=== PATIENT | female | born 1990 | race Caucasian/White ===

== ENCOUNTER 2018-03-03 11:15 | Inpatient (IN) | payer BC, SELFPAY ==
[2018-03-03 11:24] VITALS: BMI 23.8
[2018-03-03 11:42] LABS: Hematocrit 37.5 % (37-47); Hemoglobin 13.3 g/dl (12.0-15.0); Mean Corp Hgb Conc 35.5 g/gl (32-36); Mean Corpuscular Hgb 33.1 pg (27.0-32.0); Mean Corpuscular Volume 93.3 fL (81-99); Mean Platelet Vol. 11.3 fl (6.2-12.0); Platelet Count 256 K/mm3 (150-450); RBC Distribution Width CV 13.5 % (11.6-14.6); RBC Distribution Width SD 45.2 fl (35.1-43.9); Red Blood Count 4.02 M/mm3 (4.2-5.4); Scan Indicated on CBC? Y/N NO; White Blood Count 23.1 K/mm3 (4.4-11.0)
[2018-03-03] MEDS: Oxytocin 30 units/NS 500 ml 30 UNITS/500 ML IV.SOLN 334 UNITS IV (11:45)
--- NOTE | 2018-03-03 11:52 | PCM.HP.OB ---
History Date of Admission: 03/03/18 Final MALAIKA: 03/28/18 Final MALAIKA Source: LMP Gestational age: 36 Weeks and 3 Days History of this : @ 36.3 wks in active labor, denies any complications with the . pt is dated by LMP c/w first trimester ultrasound. Allergies No Known Allergies Allergy (Verified 01/14/17 00:46) Current Medications Acetaminophen (Tylenol) 325 - 650 mg PO Q4H PRN PRN PRN Reason: PAIN OR FEVER >100.4F Al Hydroxide/Mg Hydroxide (Mylanta Ii) 15 - 30 ml PO Q4H PRN PRN PRN Reason: INDIGESTION Citric Acid/Sodium Citrate (Bicitra) 30 ml PO UD PRN Lactated Ringer's () 1,000 mls @ 50 mls/hr IV .Q20H DARCIE Nalbuphine HCl (Nubain) 5 - 10 mg IV Q3H PRN PRN PRN Reason: PAIN (4-10/10) Ondansetron HCl (Zofran) 4 mg IV Q8H PRN PRN PRN Reason: NAUSEA Promethazine HCl (Phenergan) 6.25 - 12.5 mg IV Q4H PRN PRN; Protocol PRN Reason: IF NAUSEA PERSISTS Sodium Chloride () 5 - 15 ml IV UD DARCIE Smoking Status: Heavy Smoker (>10/day) Alcohol: None Substance Use Type: Marijuana Number of Fetus(es): 1 Review of Systems Constitutional: Denies: Anorexia Cardiovascular: Denies: Chest Pain Respiratory: Denies: Cough Physical Exam General: Alert, Oriented x3 Abdomen: Soft, Gravid Estimated gestational size: Appropriate for gestational size Presentation: Cephalic Cervix Dilation (cm): 10 Station: 1 Effacement (%): 100 Assessment/Plan 27yo @ 36.3 wks Fully dilated with bulging membranes on admission 1) admit to L&D 2) Nitrous for pain relief 3) Monitor FHR/TOCO 4) anticipate 5) AROM- CLEAR 6) GBS neg, AB +, HIV neg, Rub imm, Syphilis neg, HEP B neg
--- NOTE | 2018-03-03 11:55 | PCM.OB.VAG ---
Vaginal Delivery Maternal Presentation: Active Labor Amniotic Membrane Rupture Type: Artificial Amniotic Fluid Description: Clear Final MALAIKA: 03/28/18 Gestational age: 36 Weeks and 3 Days Date of Procedure: 03/03/18 Pre-Operative Diagnosis: spontnaeous labor Post-Operative Diagnosis: SAME, LIVE MALE Surgery/ Procedure Performed: Spontaneous Vaginal Delivery Type of Anesthesia: - - NITROUS Description of Procedure: OF LIVE MALE INFANT BORN WITHOUT COMPLICATION. AROM PERFORMED- CLEAR FLUID AND WITH A FEW PUSHES BABY WAS DELIVERED WITH GOOD MATERNAL EFFORT. DELAYED CORD CLAMPING PERFORMED. Presentation: Vertex Placental Delivery Description: Spontaneous Placenta Disposition: [facility] Cord Vessel Description: 3 Vessels Cord Entanglement: None Estimated Blood Loss: 150 Infant A gender: Male (1 minute): 9 (5 minute): 10 Episiotomy Description: None Laceration: None Medications given after delivery: IV Pitocin Complications: None
--- NOTE | 2018-03-03 12:01 | DCINST_ITS ---
Discharge Diet: No Restrictions Discharge Activity: Return to Normal Activity, May not drive while taking narcotic pain medications., May Shower May resume sexual activity in: 4-6 weeks Additional Activity Instructions:: Nothing in the vagina for 4-6 weeks. You may return to work/school in 6 weeks. Call your doctor if your incision/area has: Continuous Slow Oozing, Sudden Increased Bleeding, Increased Pain/ Swelling, Increased Redness, Foul Smelling Discharge Additional Instructions: If you experience any of the following, contact your healthcare provider. * Bleeding that soaks a pad every hour for 2 hours * Fever 100.4 or higher * Unrelieved incision or abdominal pain * Swelling, redness, discharge or bleeding from your incision or episiotomy site * Your incision begins to separate * Problems urinating (including inability to urinate or burning while urinating) . * Visual changes * Severe headache * Flu-like symptoms * Pain or redness in one of both of your breasts * Pain, warmth, tenderness or swelling in your legs, especially the calf area * Frequent nausea and vomiting * Symptoms of depression or anxiety If you experience any of the following, call 911 or go to the nearest Emergency Room. * Chest pain * Problems breathing * Seizure activity * Partial or complete paralysis of a body part, slurred speech, weakness or drooping of the face, or a sudden inability to walk or hold your balance Allergies/Adverse Reactions: Allergies No Known Allergies Allergy (Verified 01/14/17 00:46) Medications to take at Discharge Vits [Prenatabs FA ] 1 tablet PO DAILY 01/13/17 Acetaminophen [Tylenol] 500 - 1,000 mg PO Q6H PRN PRN 03/03/18 Ibuprofen [Motrin] 800 mg PO Q8H PRN PRN #30 tab 03/03/18 The following prescriptions were given: Ibuprofen [Motrin] 800 mg PO Q8H PRN PRN #30 tab PRN Reason: Pain When: Call to make an appointment with your doctor in 6 weeks. If you had elevated Blood Pressure or 4th degree laceration you will need to be seen in 2 weeks.
[2018-03-03] MEDS: Oxytocin 30 units/NS 500 ml 30 UNITS/500 ML IV.SOLN 167 UNITS IV (12:35)
[2018-03-03] MEDS: Ibuprofen 600 MG Tablet PO (12:43)
[2018-03-03] MEDS: Methylergonovine 0.2 MG/ML Ampul IM (13:08)
[2018-03-03] MEDS: 0.9% Saline Lock 10 ML Syringe IV (13:25)
[2018-03-03] MEDS: Lactated Ringers 1,000 ML 50 ML IV (13:30)
[2018-03-03 15:06] LABS: Amphetamine Urine VISTA NEGATIVE (<1000 ng/mL); Barbiturate Urine VISTA NEGATIVE (< 200 ng/mL); Benzodiazepine Urine VISTA NEGATIVE (< 200 ng/mL); Cocaine Urine VISTA NEGATIVE (< 300 ng/mL); Ecstacy Urine VISTA NEGATIVE (< 500 ng/mL); Methadone Urine VISTA NEGATIVE (< 300 ng/mL); PCP Urine VISTA NEGATIVE (< 25 ng/mL); THC Urine VISTA NEGATIVE (< 50 ng/mL); Vista UDS pH Range 6
[2018-03-03 16:00] VITALS: BP 106/66; PULSE 81; RESP 18; TEMP 36.4
[2018-03-03 20:00] VITALS: BP 102/54; PULSE 80; RESP 15; TEMP 36.8
[2018-03-04] VITALS: BP 97/49; PULSE 89; RESP 18; TEMP 37.1
[2018-03-04] MEDS: Ibuprofen 600 MG Tablet PO (02:37)
[2018-03-04 04:00] VITALS: BP 97/49; PULSE 89; RESP 17; TEMP 37.1
[2018-03-04 08:30] VITALS: BP 92/50; PULSE 72; RESP 16; TEMP 36.3
--- NOTE | 2018-03-04 08:47 | PCM.PN.OB ---
Subjective: No complaints - Physical Exam General: Alert, Oriented x3 Abdomen: Soft, Non Tender - ff mid & below umb Extremities: No Calf Tenderness Vital Signs Temp Pulse Resp BP 98.7 F 89 17 97/49 L 03/04/18 04:00 03/04/18 04:00 03/04/18 04:00 03/04/18 04:00 Oxygen Delivery Method Room Air Weight: 138 lb 14.259 oz Body Mass Index (BMI) 23.8 Intake and Output for Last 24 Hours 03/02/18 03/03/18 03/04/18 23:59 23:59 23:59 Intake Total 334 / 334 Output Total 400 / 400 Balance -66 / -66 Laboratory Tests Past 24 Hrs 03/03/18 03/03/18 03/03/18 11:25 11:25 14:10 WBC 23.1 H RBC 4.02 L Hgb 13.3 Hct 37.5 MCV 93.3 MCH 33.1 H MCHC 35.5 RDW 13.5 RDW Differential 45.2 H Plt Count 256 MPV 11.3 Urine Opiates Screen NEGATIVE Urine Methadone Screen NEGATIVE Ur Barbiturates Screen NEGATIVE Ur Phencyclidine Scrn NEGATIVE Ur Amphetamines Screen NEGATIVE U Methamphetamin-MDMA NEGATIVE U Benzodiazepines Scrn NEGATIVE Urine Cocaine Screen NEGATIVE U Cannabinoids Screen NEGATIVE Ur Drug Screen Comment Blood Type AB POSITIVE Antibody Screen NEGATIVE Medical Necessity - Tobacco Use Smoking Status: Current every day smoker Assessment/Plan PPD#1 Possible d/c home later today per patient request Social work consult pending
[2018-03-04] MEDS: MedroxyPROGESTERone 150 MG/ML Syringe IM (09:51)
[2018-03-04 11:42] VITALS: BP 91/44; PULSE 88; RESP 16; TEMP 36.6
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
--- NOTE | 2018-03-25 15:06 | CASEMGMT ---
Social Work Results back from Meconium, infant tested positive for THC. Telephone call to [facility] CPS, E[place]. This home health care social worker making report. Communicating above tox screen results along with information gained from home health care social worker assessment. This home health care social worker pointed out mother of baby (MOB) support system and future goals. This home health care social worker identifying that MOB has support but also was reporting to have several friend pass away within the last year due to overdose. This home health care social worker reporting that MOB was open during assessment and did admit to THC usage. Risk factors were shared along with positive factors for both MOB and infant. Ely reporting that phone kristopher will be made to MOB and that CPS will be following up with case. Ely has this social workers contact information if any further questions would arise. No further needs identified at this time. Bria LOMAX, PSYCHIC READER
== END 2018-03-04 18:05 | disposition home or self-care (01) | DRG 775 ==
PROVIDERS: Admitting Provider Obstetrics & Gynecology; Visit Provider Obstetrics & Gynecology
DX: O60.14X0 Preterm labor third trimester with preterm delivery third trimester, not applicable or unspecified (principal); O99.334 Smoking (tobacco) complicating childbirth; Z3A.36 36 weeks gestation of pregnancy; Z37.0 Single live birth
CPT/HCPCS: 59025; 59050; 80307; 85027; 86850; 86900; 99218; J7120; A4216; G0378